=== PATIENT | male | born 1950 | race Caucasian/White ===

== ENCOUNTER 2017-08-02 12:30 | Outpatient (RCR) | payer MEDICARE, OTHER ==
--- NOTE | 2017-07-22 13:38 | RADIOLOGY IMAGING REPORT ---
[place] [facility] [place] Mazin Dewitt : 1950 MR: [id number] V: [id number] EXAM DATE: ORDERING PHYSICIAN: WILLIAMS ONEILL TECHNOLOGIST: Location: [facility] Patient: Mazin Dewitt : 1950 Visit/Account:[id number] Date of Sevice: 07/22/2017 ABDOMEN/PELVIS W/WO CONTRAST HISTORY: Upper abdomen pain TECHNIQUE: Axial images acquired through the abdomen/pelvis both with and without IV contrast.. Castillo nal and sagittal reformatting also performed. Dose Lowering Technique One of the following dose optimization techniques was utilized in the performance of this exam: Autom ated exposure control; adjustment of the mA and/or kV according to the patient's size; or use of an i terative reconstruction technique. Specific details can be referenced in the facility's radiology C T exam operational policy. CONTRAST: 75 mL Isovue-370 COMPARISON: September 24, 2011 FINDINGS: Visualized lung bases: Small amount scarring is noted along the inferior aspect of the lingula Hepatobiliary: There are postsurgical changes from a cholecystectomy . Subcentimeter hypodensity l eft lobe of the liver has remained stable Spleen: Negative. Adrenals: Negative. Pancreas: Negative. Kidneys ureters and bladder: Negative. Genitalia: Negative. GI: Large duodenal diverticulum again noted Vessels/spaces/nodes: There Is a 1.7 x 1.4 cm left common iliac lymph node that has remained stable Bones/soft tissues: There are moderate spondylotic changes of the lumbar spine. Additional findings: None pertinent. IMPRESSION: Post surgical changes from a cholecystectomy. 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
[~2017-08-02 12:30] MED LIST: ALBUTEROL SULFATE INH; ASCO120P2 PO; ATEN-65 PO; AXIRON; B12/1TAB3 PO; CLIN300C99 PO; CYCL1DRO6 OP; ENO150PT SQ; FISH OIL1 CAP PO; FLAX100038 PO; FLUINH INH; FURO-45 PO; FURO20TA19 PO; GARL100T2 PO; HYDR-6015 PO; KRIL1CAP6 PO; LEVO750T25 PO; LOSA100T67 PO; METR-1 PO; MILK200C PO; MON10 PO; MULT-1335 PO; NIA100 PO; OMEG500C7 PO; OMEP10CA40 PO; PAN40 PO; POTA99TA13 PO; UBID100C9 PO; UBID10CA8 PO; UBID30CA27 PO; WARF-1 PO; [UNRECOGNIZED DRUG - CODE] PO
[2017-08-05] MEDS ORDERED: OMEP-218 PO (11:52)
[2017-08-05] MEDS ORDERED: OXYGENHOME INH (11:57)
[2017-08-05] MEDS ORDERED: SULF-198 PO (14:59)
[2017-08-05] MEDS ORDERED: CEPH-13 PO (14:59)
[2017-08-10] MEDS ORDERED: AMLO-99 PO (20:52)
[2017-08-11] MEDS ORDERED: CEPH500C24 PO (08:10)
== END 2017-08-25 ==
LOC: RESP 12:30
PROVIDERS: ATTEND Internal Medicine Pulmonary Disease
DX: J41.0 Simple chronic bronchitis (principal); R09.02 Hypoxemia
CPT/HCPCS: G0239 ×3; 74178